=== PATIENT | male | born 1990 | race Caucasian/White ===

== ENCOUNTER 2018-06-06 09:25 | Day surgery (SDC) | payer OTHER ==
[~2018-06-06] VITALS: Ht 172.7 cm; Wt 79.4 kg
[2018-06-06] VITALS (9 sets, daily range): BP systolic 107–125; BP diastolic 56–74
[~2018-06-06 09:25] MED LIST: NKM
[2018-06-06] MEDS ORDERED: fentaNYL 100 mcg/2 mL IV ONE (12:04)
[2018-06-06] MEDS ORDERED: Midazolam 2mg/2ml Inj ONE (12:04)
[2018-06-06] MEDS ORDERED: Lidocaine 1% MPF 10mg/ml 5ml ONE (12:05)
[2018-06-06] MEDS ORDERED: Propofol 200mg/20ml IV ONE (12:05)
[2018-06-06] MEDS ORDERED: Ketorolac 30mg Inj ONE (12:05)
--- NOTE | 2018-06-06 12:42 | Pre-Procedure Note/Attestation ---
Pre-Procedure Note/Attestation Complete Prior to Procedure Planned Procedure: left Procedure Narrative: Excision of left post-auricular melanoma Attestation I attest that I discussed the nature of the procedure; its benefits; risks and complications; and alternatives (and the risks and benefits of such alternatives ), prior to the procedure, with the patient (or the patient's legal patient account representative). I attest that, if there was a reasonable possibility of needing a blood transfusion, the patient (or the patient's legal patient account representative) was given the [facility] standardized written summary, pursuant to the Tyler Ayesha Blood Safety Act ([place] Health and Safety Code # 1645, as amended). I attest that I re-evaluated the patient just prior to the surgery and that there has been no change in the patient's H&P, except as documented below: LORY TOLENTINO Jun 06, 2018 12:42
[2018-06-06] MEDS ORDERED: Lidocaine 1% 10mg/ml/Epi 0.005mg/ml 30ml vial INJ ONE (12:52)
[2018-06-06] MEDS ORDERED: LR 1000ml ONE (13:00)
[2018-06-06] MEDS ORDERED: Sterile Water Irrig 1000ml IRRIG ONE (13:00)
[2018-06-06] MEDS ORDERED: NS Irrig 1000ml ONE (13:00)
--- NOTE | 2018-06-06 13:44 | Anethesia Preoperative Eval ---
Anesthesia Pre-op PMH/ROS General Date of Evaluation: Jun 06, 2018 Time of Evaluation: 14:50 Anesthesiologist: Sara ASA Score: ASA 2 Mallampati Score Class I : Soft palate, uvula, fauces, pillars visible Class II: Soft palate, uvula, fauces visible Class III: Soft palate, base of uvula visible Class IV: Only hard plate visible Mallampati Classification: Class II Surgeon: Jeronimo Diagnosis: L posterior ear melanoma Surgical Procedure: Excision of melanoma Anesthesia History: none Family History: no anesthesia problems Allergies: Coded Allergies: No Known Allergies (Unverified , 06/06/18) Medications: see eMAR Past Medical History Cardiovascular: Denies: HTN, CAD, AR, valve dz, arrhythmia, other Pulmonary: Denies: asthma, COPD, TAMMY, other Gastrointestinal/Genitourinary: Reports: GERD - mild; Denies: CRI, ESRD, other Neurologic/Psychiatric: Denies: dementia, CVA, depression/anxiety, TIA, other Endocrine: Denies: DM, hypothyroidism, steroids, other HEENT: Denies: cataract (L), cataract (R), glaucoma, MARSHALL (L), MARSHALL (R), other Hematology/Immune: Denies: anemia, DVT, bleeding disorder, other Musculoskeletal/Integumentary: Denies: OA, RA, DJD, DDD, edema, other PMH Narrative: as above PSxH Narrative: none Anesthesia Pre-op Phys. Exam Physician Exam Last Vital Signs Date Time Temp Pulse Resp B/P (MAP) Pulse Ox O2 Delivery O2 Flow Rate FiO2 06/06/18 09:59 97.8 79 20 125/67 (86) 99 97.8 06/06/18 09:58 Room Air Constitutional: NAD Neurologic: CN 2-12 intact Cardiovascular: RRR, no M/R/G Respiratory: CTA Gastrointestinal: S/NT/ND Airway Exam Mallampati Score: Class II MO: full Neck: flexible Teeth: intact Dentures: no upper, no lower Anesthesia Pre-op A/P Risk Assessment & Plan Assessment: ASA 2 Plan: GA with LMA Status Change Before Surgery: No Pre-Antibiotics Drug: Ancef 1gr. Given Within 1 Hr of Incision: Yes Time Given: 13:20 Wali Ruiz MD Jun 06, 2018 13:44
--- NOTE | 2018-06-06 13:53 | Operative Note - PDOC ---
Operative Note Operative Note Pre-op Diagnosis: Left post-auricualr melanoma Procedure: Excision of left post-auricular melanoma and wound clsoure Post-op Diagnosis: same as pre-op Surgeon: Jeronimo Agricultural Equipment Test Engineer: Toy Anesthesia: general Specimen: yes Complications: none Estimated Blood Loss: none Drains: none Implant(s) used?: No LORY TOLENTINO Jun 06, 2018 13:53
[2018-06-06] MEDS ORDERED: fentaNYL 100 mcg/2 mL IV PRN (14:07)
[2018-06-06] MEDS ORDERED: DiphenhydrAMINE 50mg/ml Inj IVP PRN (14:07)
[2018-06-06] MEDS ORDERED: Ketorolac 30mg Inj IV PRN (14:07)
[2018-06-06] MEDS ORDERED: Metoclopramide 10mg/2ml Inj IVP PRN (14:07)
[2018-06-06] MEDS ORDERED: LR 1000ml 1,000 ML IVLG SCH (14:08)
--- NOTE | 2018-06-06 14:12 | Immediate Post-Op Evaluation ---
Immediate Post-Op Evalulation Immediate Post-Op Evalulation Procedure: Excision of L posterior ear melanoma Date of Evaluation: Jun 06, 2018 Time of Evaluation: 14:11 IV Fluids: 800 Blood Products: none Estimated Blood Loss: min Urinary Output: none Blood Pressure Systolic: 108 Blood Pressure Diastolic: 60 Pulse Rate: 67 Respiratory Rate: 20 O2 Sat by Pulse Oximetry: 99 Temperature (Fahrenheit): 97.8 Pain Score (1-10): 1 Nausea: No Vomiting: No Complications none Patient Status: awake, patent, none Hydration Status: adequate Wali Ruiz MD Jun 06, 2018 14:12
--- NOTE | 2018-06-06 21:30 | Operative Note - Dictated ---
DATE OF OPERATION: 06/06/2018 PREOPERATIVE DIAGNOSIS: Biopsy-proven left postauricular melanoma. POSTOPERATIVE DIAGNOSIS: Biopsy-proven left postauricular melanoma. PROCEDURES: 1. Excision of left postauricular melanoma. 2. Elevation of an anterior local neck flap for closure of left postauricular wound. 3. Elevation of a posterior local neck flap for closure of left postauricular wound SURGEON: Kiley Decker M.D. TRUCK GREASER: Yamilet Yeager M.D. SPECIMEN: Included left postauricular melanoma that was oriented with sutures and the defect that resulted from removal of the melanoma was 4 x 4 cm. DISPOSITION: Stable to the recovery room. 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 The patient was seen by me and I felt that it was appropriate to proceed expeditiously with excision of the area. We discussed that he would require wide excision with a minimal of 1 cm margins circumferentially to adequately remove the specimens. He understood the risks and benefits of surgery and agreed to proceed. DETAILS OF THE OPERATION: The patient was brought to the operating room and laid in the supine position on the operating room table. After induction of the anesthesia, the left neck was prepped and draped in a sterile and usual fashion. The biopsy site was marked out clearly, 1 cm margins circumferentially were marked out in the appearance of a [place], but in the anticipation of being able to close the wound with local flap elevation, we designed an elliptical extension on both ends of the incision at the 12 and 6 o'clock positions. A 15 blade was used to make this elliptical incision to include the premarked margins for the specimen and a #15 blade was then used to also dissect the deeper tissues keeping most of the deep tissues attached to the specimen just above the level of the neck fascia. Once this specimen was nearly completely free and was suture oriented with the 12 o'clock, 9 o'clock, and 6 o'clock position, all suture oriented properly. The specimen was then removed and the defect that resulted measured approximately 4 x 4 cm and approximately 5.5 cm on the elliptical extension longitudinally. This was clearly not amenable to direct primary closure. As such, anterior and posterior neck flaps were elevated. The flaps were elevated just anterior to the platysma muscle on the anterior side with perforators off of the facial artery perfusing this flap. In a similar fashion, the posterior one was elevated off of the sternocleidomastoid fascia with perforators off the superior thyroid artery's perfusing this flap. Once the flaps were fully mobilized, they were noted to be able to be brought together without any tension and the wound was then copiously irrigated with pulse lavage. Hemostasis was achieved and the two flaps were brought together in the midline using #3-0 Vicryl sutures for the deep dermis as well as multiple interrupted 4-0 Prolene sutures for the skin. The specimen was sent from permanent section and for pathology. We feel very confident that all the melanoma has been removed, but if there is any positive margins, we will have to come back to perform further excisions of tissue. Kiley Decker M.D. DR: JESUS JOB#: [id number] CC: [id number]
== END 2018-06-06 15:00 | disposition home or self-care (01) ==
LOC: SUR 09:25
DX: C43.4 Malignant melanoma of scalp and neck (principal); K21.9 Gastro-esophageal reflux disease without esophagitis
CPT/HCPCS: 14041; J0690; J1885; J2250; J2405; J2704; J3010; J7120; 94003; 94150